=== PATIENT | male | born 1960 ===

== ENCOUNTER 2019-02-01 21:28 | Emergency (ER) | payer OTHER ==
[~2019-02-01] VITALS: Ht 167.6 cm; Wt 72.6 kg
== END 2019-02-02 01:57 | disposition home or self-care (01) ==
LOC: ER 21:28
DX: S93.401A Sprain of unspecified ligament of right ankle, initial encounter (principal); X58.XXXA Exposure to other specified factors, initial encounter
CPT/HCPCS: 29515; 73600; 96372; 99283-25; J1885; L1906